=== PATIENT | female | born 1960 | race Caucasian/White ===

== ENCOUNTER 2016-08-28 08:17 | Outpatient (CLI) | payer OTHER | END 2016-08-28 23:00 | disposition home or self-care (01) | LOC: LAB SRH 08:17 | DX: R10.9 Unspecified abdominal pain (principal); R89.9 Unspecified abnormal finding in specimens from other organs, systems and tissues | CPT/HCPCS: 90074; 90100 ==

== ENCOUNTER 2016-08-29 07:38 | Outpatient (CLI) | payer OTHER ==
--- NOTE | 2016-08-29 09:06 | DIAGNOSTIC IMAGING REPORT ---
PROCEDURE: CT ABD/PELVIS WITH CONTRAST CLINICAL INDICATION: ABD PAIN,CONSTIPATION,BACK PAIN TECHNIQUE: 125 ml of Isovue 300 were injected intravenously and axial images were obtained of the entire abdomen and pelvis with sagittal and coronal reformations. COMPARISON: None. FINDINGS: ABDOMEN: Lung base are clear. Normal heart size. Liver, gallbladder, pancreas, spleen, adrenal glands and left kidney are normal. Small right renal cyst. Mild atherosclerosis of the aorta. Nonspecific bowel gas pattern. PELVIS: Normal appendix. Mild sigmoid diverticulosis. Hysterectomy. Small amount of free fluid in the pelvis. Adnexa and bladder are unremarkable. Bones are unremarkable. IMPRESSION: 1. Mild sigmoid diverticulosis 2. Hysterectomy All CT scans at this facility use dose modulation, iterative reconstruction, and/or weight-based dosing when appropriate to reduce radiation dose to as low as reasonably achievable.
== END 2016-08-29 23:00 | disposition home or self-care (01) ==
LOC: CT SRH 07:38
DX: K57.30 Diverticulosis of large intestine without perforation or abscess without bleeding (principal)